=== PATIENT | male | born 1995 | race Caucasian/White ===

== ENCOUNTER → 2021-02-13 | Emergency (ER) | payer MEDICAID ==
[~2021-02-13] VITALS: Ht 175.3 cm; Wt 100.0 kg
[2021-02-13 09:30] VITALS: BP 165/71
== END | disposition home or self-care (01) ==
LOC: ER 09:18
DX: Z02.89 Encounter for other administrative examinations (principal); M54.89 Other dorsalgia; V87.7XXD Person injured in collision between other specified motor vehicles (traffic), subsequent encounter
CPT/HCPCS: 99281